=== PATIENT | male | born 1935 | race Caucasian/White ===

== ENCOUNTER → 2017-10-20 | Outpatient (CLI) | payer MEDICARE ==
[~2017-10-20] MED LIST: ASPI-1181 PO; CLINDAMYCIN PO; CLOP75TA14 PO; ESCI10TA PO; METO-408 PO; MOME17N NS; MONT10TA21 PO; MV-M1TAB20 PO; NITR0.4T SL; RABE20 PO; ROSU20TA PO; SILD100T PO; VIT1CAPS21 PO
== END | disposition home or self-care (01) ==
LOC: RAH 13:40
PROVIDERS: ATTEND Neurological Surgery
DX: M47.22 Other spondylosis with radiculopathy, cervical region (principal); M47.26 Other spondylosis with radiculopathy, lumbar region; M48.062 Spinal stenosis, lumbar region with neurogenic claudication; M51.36 Other intervertebral disc degeneration, lumbar region; M48.02 Spinal stenosis, cervical region; N28.1 Cyst of kidney, acquired; R10.2 Pelvic and perineal pain; R53.1 Weakness; Z91.81 History of falling
CPT/HCPCS: 72141; 72148; 72170

== ENCOUNTER 2017-11-05 13:30 | Observation (INO) | payer MEDICARE ==
[~2017-11-05] VITALS: Ht 175.3 cm; Wt 98.0 kg
[2017-11-05 10:49] LABS: BASOPHILS % (AUTO) 0.8 % (0.0-5.0); EOSINOPHILS % (AUTO) 7.3 % (0.0-8.0); HEMATOCRIT 42.2 % (42-54); LYMPHOCYTES % (AUTO) 22.4 % (21.0-51.0); MEAN CORPUSCULAR HEMOGLOBIN 28.8 pg (27.0-33.0); MEAN CORPUSCULAR HGB CONC 33.4 g/dL (32.0-36.0); MONOCYTES % (AUTO) 6.7 % (3.0-13.0); NEUTROPHILS % (AUTO) 62.8 % (40.0-77.0); PLATELET COUNT (AUTO) 179 K/uL (130-400); RED BLOOD CELL COUNT(AUTO) 4.91 MIL/uL (4.50-6.20); RED CELL DISTRIBUTION WIDTH 15.3 % (11.0-15.5); WHITE BLOOD COUNT (AUTO) 8.1 K/uL (4.8-10.8)
[2017-11-05 10:59] LABS: CREATININE 1.2 mg/dL (0.5-1.5); POTASSIUM 4.9 mmol/L (3.5-5.1)
[2017-11-05 11:15] VITALS: BP 151/69
[2017-11-10] VITALS (31 sets, daily range): BP systolic 93–151; BP diastolic 61–83
[2017-11-10] MEDS ORDERED: BUPIVACAINE/PF 0.25% 30ML VIAL IJ ONE (06:37)
[2017-11-10] MEDS ORDERED: BACITRACIN 50,000 UNIT VIAL ONE (06:38)
[2017-11-10] MEDS ORDERED: DURAMORPH PF1 MG/ML 10ML AMP IV ONE (06:38)
[2017-11-10] MEDS ORDERED: EPINEPHRINE 1 MG/ML AMPULE ONE (06:38)
[2017-11-10] MEDS ORDERED: THROMBIN-JMI 20000 UNIT KIT TP ONE (06:39)
[2017-11-10] MEDS: CEFAZOLIN SODIUM 1 GM VIAL ONE ×2 (06:42→07:30)
[2017-11-10] MEDS ORDERED: LACTATED RINGERS 1000ML 1,000 ML IV ONE (06:42)
[2017-11-10] MEDS ORDERED: SODIUM CHLORIDE 0.9% 10 ML VIAL ONE (06:51)
[2017-11-10] MEDS ORDERED: NEOSTIGMINE 5MG/5ML SYR IV ONE (06:57)
[2017-11-10] MEDS ORDERED: DEXAMETHASONE SOD PHOSPHATE 10MG/ML 1ML VIAL ONE ×2 (06:57→08:03)
[2017-11-10] MEDS ORDERED: GLYCOPYRROLATE 0.2 MG/ML 5 ML VIAL ONE (06:57)
[2017-11-10] MEDS ORDERED: ONDANSETRON HCL 4 MG/2 ML VIAL ONE ×2 (06:57→08:03)
[2017-11-10] MEDS ORDERED: LIDOCAINE PF 2% 5ML ABBOJECT ONE (06:57)
[2017-11-10] MEDS ORDERED: MIDAZOLAM HCL 1 MG/ML 2ML VIAL ONE (06:58)
[2017-11-10] MEDS ORDERED: FENTANYL CITRATE PF 50 MCG/1 ML 2ML VIAL ONE ×2 (06:58→08:03)
[2017-11-10] MEDS ORDERED: PROPOFOL 10 MG/ML 20ML VIAL IV ONE (06:58)
[2017-11-10] MEDS ORDERED: EPHEDRINE SULFATE 50 MG/ML AMPULE ONE (07:32)
[2017-11-10] MEDS ORDERED: METOCLOPRAMIDE 10 MG/2 ML VIAL ONE (08:03)
[2017-11-10] MEDS ORDERED: ROCURONIUM BROMIDE 10MG/1ML 5ML VL ONE (08:03)
[2017-11-10] MEDS ORDERED: SUCCINYLCHOLINE CHLORIDE 20 MG/ML 10 ML VIAL ONE ×2 (08:03→08:04)
[2017-11-10] MEDS ORDERED: PHENYLEPHRINE HCL 10 MG/ML 1ML VIAL IV ONE (08:04)
[2017-11-10] MEDS ORDERED: LIDOCAINE HCL 4% LTA SOL 4 ML VIAL ONE (08:04)
[2017-11-10] MEDS ORDERED: NITROGLYCERIN 0.4 MG SL TAB SL PRN (13:45)
[2017-11-10] MEDS ORDERED: NON-FORMULARY MEDICATION 1 EACH (Sildenafil Citrate (Viagra) 100 MG) PO SCH (13:45)
[2017-11-10] MEDS ORDERED: PHARMACY COMMUNICATION MISC SCH (14:15)
[2017-11-10] MEDS ORDERED: MORPHINE SULFATE 2 MG/ML 1ML SYG IV PRN (14:15)
[2017-11-10] MEDS ORDERED: PROMETHAZINE HCL 25 MG/ML 1ML AMPULE IM PRN (14:15)
[2017-11-10] MEDS: LACTATED RINGERS 1000ML 1,000 ML IV SCH (14:50)
[2017-11-10] MEDS ORDERED: CEFAZOLIN SODIUM 1 GM VIAL IV SCH (18:00)
[2017-11-10] MEDS: DEXAMETHASONE SOD PHOSPHATE 4 MG/ML 1ML VIAL IVP SCH ×2 (18:08→23:15)
[2017-11-10] MEDS: METOPROLOL TARTRATE 25 MG TAB PO SCH (19:37)
[2017-11-10] MEDS: TRAMADOL HCL 50 MG TABLET PO SCH (19:37)
[2017-11-10] MEDS ORDERED: ATORVASTATIN CALCIUM 40 MG TABLET PO SCH (21:00)
[2017-11-10] MEDS ORDERED: ASPIRIN 81 MG EC TAB PO SCH (21:00)
[2017-11-11] MEDS: TRAMADOL HCL 50 MG TABLET PO SCH (00:30)
[2017-11-11] MEDS ORDERED: CALCIUM CARBON 500MG CHEW TAB PO PRN (01:45)
[2017-11-11 03:20] VITALS: BP 122/67
[2017-11-11] MEDS: LACTATED RINGERS 1000ML 1,000 ML IV SCH (03:35)
[2017-11-11] MEDS: DEXAMETHASONE SOD PHOSPHATE 4 MG/ML 1ML VIAL IVP SCH (05:17)
[2017-11-11] MEDS ORDERED: TRAMADOL HCL 50 MG TABLET PO PRN (06:30)
[2017-11-11] MEDS ORDERED: ACIPHEX PO SCH (07:30)
[2017-11-11 07:53] VITALS: BP 152/70
[2017-11-11] MEDS ORDERED: FLUTICASONE PROPIONATE 50MCG/SPRAY 16 GM BOTTLE EN SCH (09:00)
[2017-11-11] MEDS ORDERED: CITALOPRAM 20 MG TABLET PO SCH (09:00)
[2017-11-11] MEDS: METOPROLOL TARTRATE 25 MG TAB PO SCH (09:17)
== END 2017-11-11 10:20 | disposition home or self-care (01) ==
LOC: EDSTATUS 13:30 → INTOOBSV 11-10 05:59 → DAHIP 11-10 05:59 → 4AH 11-10 12:48
PROVIDERS: ADMIT Neurological Surgery; ATTEND Neurological Surgery
DX: M48.061 Spinal stenosis, lumbar region without neurogenic claudication (principal); I25.2 Old myocardial infarction; E78.5 Hyperlipidemia, unspecified; I10 Essential (primary) hypertension; I73.9 Peripheral vascular disease, unspecified; K21.9 Gastro-esophageal reflux disease without esophagitis; Z79.82 Long term (current) use of aspirin; Z79.899 Other long term (current) drug therapy
CPT/HCPCS: 36415; 63047; 63048 ×2; 72020; 80048; 85025; 96374; 96375; 96376 ×2; A4218 ×2; A4344; A4510; A4600; A4649 ×3; A6219; G0378 ×29; J0171; J0330 ×2; J0690 ×2; J1100 ×5; J2001; J2250; J2274; J2370; J2405 ×2; J2704; J2710; J2765; J3010 ×2; J3490 ×4; J7120

== ENCOUNTER → 2019-11-10 | Outpatient (CLI) | payer MEDICARE ==
[~2019-11-10] MED LIST changes: -ASPI-1181 PO; +ASPI-1443 PO; -CLINDAMYCIN PO; -CLOP75TA14 PO; -MONT10TA21 PO; +OCUVITE SOFTGE1 EACH PO; -ROSU20TA PO; +ROSU20TA23 PO; -VIT1CAPS21 PO
== END | disposition home or self-care (01) ==
LOC: SHCH 08:42
PROVIDERS: ATTEND Internal Medicine Cardiovascular Disease
DX: R01.1 Cardiac murmur, unspecified (principal)
CPT/HCPCS: 93306

== ENCOUNTER → 2019-11-16 | Outpatient (CLI) | payer MEDICARE | END | disposition home or self-care (01) | LOC: SHCH 09:35 | PROVIDERS: ATTEND Internal Medicine Cardiovascular Disease | DX: I65.23 Occlusion and stenosis of bilateral carotid arteries (principal); R09.89 Other specified symptoms and signs involving the circulatory and respiratory systems | CPT/HCPCS: 93880 ==

== ENCOUNTER → 2020-09-11 | Outpatient (CLI) | payer MEDICARE | END | disposition home or self-care (01) | LOC: SHCH 14:18 | PROVIDERS: ATTEND Internal Medicine Cardiovascular Disease | DX: R60.9 Edema, unspecified (principal); I87.2 Venous insufficiency (chronic) (peripheral) | CPT/HCPCS: 93970 ==

== ENCOUNTER → 2020-12-25 | Outpatient (CLI) | payer MEDICARE | END | disposition home or self-care (01) | LOC: SHCH 09:53 | PROVIDERS: ATTEND Internal Medicine Cardiovascular Disease | DX: I70.293 Other atherosclerosis of native arteries of extremities, bilateral legs (principal) | CPT/HCPCS: 93925 ==